=== PATIENT | female | born 1950 | race Caucasian/White ===

== ENCOUNTER 2020-08-04 05:53 | Emergency (ER) | payer MEDICARE, OTHER ==
[~2020-08-04] VITALS: Ht 162.6 cm; Wt 125.9 kg
[~2020-08-04 05:53] MED LIST: ATEN-73 PO; HYDR25TA PO; NEBI10TA PO; TELM40 PO; TRICOR; VERA100C4 PO
[2020-08-04 06:01] VITALS: BP 150/76
== END 2020-08-04 06:37 | disposition home or self-care (01) ==
LOC: EMS 05:53
DX: U07.1 COVID-19 (principal); I10 Essential (primary) hypertension
CPT/HCPCS: 99283; U0003